=== PATIENT | male | born 1995 | race African-American/Black ===

== ENCOUNTER 2016-08-06 18:17 | Observation (INO) | payer MEDICAID, OTHER ==
[~2016-08-06] VITALS: Ht 180.3 cm; Wt 63.5 kg
[2016-08-06 19:46] LABS: Basophils # (auto) 0 uL; Basophils % (auto) 0.3 % (0.0-2.0); Eosinophils # (auto) 0 uL; Eosinophils % (auto) 0.5 % (0.0-7.0); Hematocrit 46.7 % (41.0-53.0); Hemoglobin 15.7 g/dL (13.5-17.5); Lymphocytes # (auto) 1.7 uL; Mean Corpuscular Hemoglobin 29.2 pg (28.0-32.0); Mean Corpuscular Hgb Conc. 33.6 g/dL (32.0-36.0); Monocytes # (auto) 0.7 uL; Monocytes % (auto) 8.9 % (0.0-12.0); Neutrophils # (auto) 5.1 uL; Neutrophils % (auto) 68.3 % (37.0-80.0); Platelet Count (auto) 155 10^3/uL (140-450); Red Cell Distribution Width 12.3 % (11.6-16.0); SUSPECT VIEW TRANSMISSION; White Blood Cell 7.5 10^3/uL (4.4-10.8)
[2016-08-06 20:08] LABS: Albumin 4.4 g/dL (3.4-5.0); BUN/Creatinine Ratio 7.5; Bilirubin, Total 1.2 mg/dL (0.2-1.0); Calcium 9.3 mg/dL (8.5-10.1); Magnesium 2.3 mg/dL (1.6-2.6); Potassium 3.9 mmol/L (3.5-5.1); Total Protein 7.9 g/dL (6.4-8.2)
[2016-08-06 20:30] LABS: Salicylate < 1.7 mg/dL (2.8-20.0)
[2016-08-06 20:39] LABS: Acetaminophen < 2.0 ug/mL (10-30)
[2016-08-06 21:49] LABS: Large Platelets FEW; Platelet Estimate Adequate
[2016-08-06 22:45] LABS: Urine RBC None Seen /hpf (0 - 3)
[2016-08-06 22:59] LABS: Urine Bilirubin Negative (Negative); Urine Blood Negative /uL (Negative); Urine Color Yellow (Yellow); Urine Glucose Normal (Normal); Urine Ketone Negative (Negative); Urine Nitrite Negative (Negative); Urine Urobilinogen Normal (Negative)
[2016-08-07 22:55] VITALS: BP 123/72
== END 2016-08-07 23:06 | disposition home or self-care (01) | DRG 812 ==
LOC: ER 18:22 → OVERFLOW 08-07 00:43
PROVIDERS: ADMIT Emergency Medicine; ATTEND Emergency Medicine
DX: T39.1X2A Poisoning by 4-Aminophenol derivatives, intentional self-harm, initial encounter (principal); F32.9 Major depressive disorder, single episode, unspecified; F41.9 Anxiety disorder, unspecified; Y92.89 Other specified places as the place of occurrence of the external cause; Z82.49 Family history of ischemic heart disease and other diseases of the circulatory system; Z83.3 Family history of diabetes mellitus
CPT/HCPCS: 36415; 71010; 80053; 80307; 80320; 80329; 81001; 83735; 85025; 93005; 99285; G0378